=== PATIENT | male | born 1985 | race Caucasian/White ===

== ENCOUNTER 2019-01-30 10:30 | Emergency (ER) | payer OTHER ==
[~2019-01-30] VITALS: Ht 177.8 cm; Wt 140.0 kg
--- NOTE | 2019-01-30 10:55 | NUR ---
TO ER 29 PER WC
--- NOTE | 2019-01-30 11:10 | NUR ---
PT A&OX4, RESP EVEN & UNLABORED, SPEECH CLEAR, SKIN WNL EXCEPT LT LOWER LEG/FOOT. LT LE REDDENED, SWOLLEN, SKIN INTACT C/O PAIN W/ WEIGHTBEARING. PT UNSURE HOW SX STARTED, DENIES TRAUMA. STATES SX STARTED W/ SORENESS X 1 WEEK, WORSENED YESTERDAY. IBUPROFEN FOR PAIN - LAST DOSE 1700 LAST NOC. AREA FIRM & HOT TO TOUCH, LT PEDAL EDEMA, LT PEDAL PULSE DIMINISHED. RT PEDAL PULSE STRONG & REG. PT'S GIRLFRIEND IN ROOM, SIDE RAIL UP X1, CALL LIGHT W/IN REACH
[2019-01-30 12:06] VITALS: BP 136/77
== END 2019-01-30 12:13 | disposition home or self-care (01) ==
LOC: ED 11:53
DX: L03.116 Cellulitis of left lower limb (principal); B35.3 Tinea pedis
CPT/HCPCS: 99283